=== PATIENT | female | born 1980 | race Caucasian/White ===

== ENCOUNTER 2017-12-28 08:18 | Day surgery (SDC) | payer OTHER ==
--- NOTE | 2017-12-20 11:31 | HP ---
Admitting History and Physical - Primary Care Physician PCP: Whitney Pope - Admission Chief Complaint: Left breast cancer History of Present Illness: 37 year old Premenapausal female from [facility] with noted left breast mass. Mammogram and US very suspicious left breast mass at 3:00 2 cm FN aprox 2.5 to 3 cm Birad 5. No associated lymph node noted. US core bx 11/2017 showed infiltrating lobular carcinoma and LCIS EWR+/AK+/HER2 -. Breast MRI showed localized cancer and no adenopathy. History Source: Patient Limitations to Obtaining History: Language Barrier - Past Surgical History Past Surgical History: Yes: Tonsillectomy - Smoking History Smoking history: Never smoked Have you smoked in the past 12 months: No - Alcohol/Substance Use Hx Alcohol Use: Yes (1 per week) Home Medications - Allergies Allergies/Adverse Reactions: Allergies Allergy/AdvReac Type Severity Reaction Status Date / Time No Known Allergies Allergy Verified 12/01/17 14:58 - Home Medications Home Medications (free text): vitamnins Family Disease History - Family Disease History Family Disease History: CA: Father (prostate ca) Physical Examination Constitutional: Yes: Well Nourished Breast(s): Yes: Other (diffusely nodular thickening left breast at 3:00, no masses right breast no adenopathy bilaterally, post bx changes left breast) Problem List - Problems (1) Breast cancer, left breast Code(s): C50.912 - MALIGNANT NEOPLASM OF UNSPECIFIED SITE OF LEFT FEMALE BREAST Qualifiers: Breast location: overlapping sites of breast Estrogen receptor status: positive Patient sex: female Qualified Code(s): C50.812 - Malignant neoplasm of overlapping sites of left female breast; Z17.0 - Estrogen receptor positive status [ER+] Assessment/Plan Left breast wide excision US localization, sentenel node biopsy , lymphoscintogram, possible axillary node dissection
[2017-12-28 09:07] VITALS: BMI 24.5
[2017-12-28] MEDS ORDERED: BUPIVACAINE HCL/PF 0.5% (5MG/ML) 10 ML VIAL ONE (14:43)
[2017-12-28] MEDS ORDERED: LIDOCAINE HCL 1%, 10 MG/ML (20ML VIAL) ONE (14:43)
[2017-12-28] MEDS ORDERED: ISOSULFAN BLUE 10 MG/ML VIAL SQ ONE (14:43)
[2017-12-28] MEDS ORDERED: MIDAZOLAM HCL 2 MG/2 ML SINGLE DOSE VIAL ONE (14:49)
[2017-12-28] MEDS ORDERED: PROPOFOL 20 ML ONE ×2 (14:49)
[2017-12-28] MEDS ORDERED: SUCCINYLCHOLINE CHLORIDE 200 MG/10 ML VIAL ONE (14:49)
[2017-12-28] MEDS ORDERED: DEXAMETHASONE SOD PHOSPHATE 4 MG/1 ML VIAL ONE (14:50)
[2017-12-28] MEDS ORDERED: ceFAZolin SODIUM 1 GM VIAL ONE (14:50)
[2017-12-28] MEDS ORDERED: LIDOCAINE HCL 2% JELLY (5 ML/TUBE) ONE (14:50)
[2017-12-28] MEDS ORDERED: KETOROLAC TROMETHAMINE 30 MG/1 ML VIAL ONE (14:50)
[2017-12-28] MEDS ORDERED: LIDOCAINE HCL/PF 2% SDV 5ML VIAL ONE (14:50)
[2017-12-28] MEDS ORDERED: ONDANSETRON 4 MG/2 ML VIAL ONE (14:50)
[2017-12-28] MEDS ORDERED: ONDANSETRON 4 MG/2 ML VIAL IVPUSH PRN ×2 (15:07→17:19)
[2017-12-28] MEDS ORDERED: KETOROLAC TROMETHAMINE 30 MG/1 ML VIAL IVPUSH PRN (15:07)
[2017-12-28] MEDS ORDERED: DEXTROSE 5%-0.45% SALINE 1,000 ML IV SCH (15:15)
[2017-12-28] MEDS ORDERED: BUPIVACAINE HCL/PF 0.5% (5MG/ML) 10 ML VIAL IJ ONE (16:50)
[2017-12-28] MEDS ORDERED: PROMETHAZINE HCL 25 MG/1 ML VIAL IVPUSH PRN (17:19)
[2017-12-28] MEDS ORDERED: oxyCODONE HCL 5 MG TABLET PO PRN ×2 (17:19)
[2017-12-28 18:18] VITALS: TEMP 98.7
[2017-12-28] MEDS ORDERED: oxyCODONE HCL 5 MG TABLET ONE (18:22)
[2017-12-28 19:02] VITALS: BP 110/70; PULSE 87
--- NOTE | 2017-12-28 19:30 | OP ---
DATE OF OPERATION: 12/28/2017 PREOPERATIVE DIAGNOSIS: Left breast cancer. POSTOPERATIVE DIAGNOSIS: Left breast cancer. PROCEDURE: Left mammographically-localized partial mastectomy with sentinel lymph node biopsy and complex breast tissue transfer. ANESTHESIA: General intubated. ATTENDING SURGEON: Dylan Pope MD CATERING ADMINISTRATIVE ASSISTANT: SHAINA Estrada ESTIMATED BLOOD LOSS: Minimal. COMPLICATIONS: None. DESCRIPTION OF PROCEDURE: Patient was made aware of the risks and benefits of the procedure and consented. She was placed in supine position, after going to the radiology suite where a needle was placed next to the index lesion and to nuclear medicine where a radiotracer was injected into the peritumoral tissues. After general anesthesia was induced, the patient was intubated. Next, 2.5 mL of 1% isosulfan blue were locally infiltrated into the peritumoral tissues in the left breast. The operative site was prepped and draped in usual sterile fashion. Curvilinear incision was made in the left axilla using sharp and blunt dissection, tissues were dissected downward where a cluster of blue and hot lymph nodes was identified and surgically excised and submitted for permanent sectioning. Interrogation of the rest of the axilla with palpation and the Neoprobe revealed no other suspicious findings or hot spots. The wound was copiously irrigated with normal saline. Hemostasis maintained by electrocautery, and the wound was closed with deep 3-0 Vicryl, followed by a running subcuticular 4-0 Monocryl. The breast was then approached. A curvilinear incision was made next to the wire using electrocautery. Thick skin flaps were made. The needle was drawn to the puncture site and the wire to the wound. Tissues around the wire were then sharply excised and submitted with a short suture superior, long suture lateral. Specimen radiograph confirmed the presence of the index lesion. Additional segments were taken deep anterior, mediolateral, superior, and inferior with clips at the new margin. Wound was copiously irrigated with normal saline. Hemostasis maintained by electrocautery. The breast tissue was then taken off the pectoralis muscle and chest wall for approximately 8-10 cm and then rotated into the defect for a complex closure. This was accomplished by multiple layers of [id number] suture of 2-0 Vicryl. Skin was then closed with deep 3-0 Vicryl, followed by a running subcuticular 4-0 Monocryl. Steri-Strips, sterile bandage, and a compression bra were then applied, and the patient, having tolerated the procedure well, was transferred to the recovery room in excellent condition. DYLAN POPE M.D. [id number]
== END 2017-12-28 19:05 | disposition home or self-care (01) ==
LOC: FASU 08:18
PROVIDERS: ATTEND Surgery Surgical Oncology
PROC: 0HBU0ZZ Excision of Left Breast, Open Approach (ICD-10-PCS; principal; 2017-12-28 15:36)
PROC: 0JX60ZC Transfer Chest Subcutaneous Tissue and Fascia with Skin, Subcutaneous Tissue and Fascia, Open Approach (ICD-10-PCS; 2017-12-28 15:36)
DX: C50.812 Malignant neoplasm of overlapping sites of left female breast (principal); Z17.0 Estrogen receptor positive status [ER+]
CPT/HCPCS: 19281; 78195-TC; 84703; 94760; A9541